=== PATIENT | male | born 1960 | race Caucasian/White ===

== ENCOUNTER 2020-05-27 09:02 | Outpatient (CLI) | payer BC, SELFPAY ==
--- NOTE | 2020-06-10 15:55 | WPDHOMESLEEP ---
Sleep Study - Home Unattended Date of Study: 05/27/20 Ordering Provider: Josette Lynch, [employer] Interpreting Provider: Darlyn Gage MD Home Sleep Study Type: Apnea Link Air Height: 1.73 m Weight: 58.06 kg Body Mass Index: 19.4 Neck Circumference (inches): 13.75 Reason for Sleep Study Excessive daytime sleepiness, snoring, insomnia Sleep History Dionisio Francois is a 60-year-old male who has complaints of loud snoring. He wakes in the middle of the night. His sleep is non restorative. He is excessively sleepy during the day. This has been going on for over 8 months, starting after being hospitalized for elevated blood glucose. He does not feel refreshed when waking in the morning. He was prescribed sleep medications but these did not help. He tried melatonin with some improvement for 2 days and then no further benefit. He has chronic fatigue and fragmented sleep. He does not have symptoms to suggest narcolepsy such as muscle weakness with strong emotion. The patient did not complete the sleep survey, so there is a lack of information about his sleep schedule. [facility] Past Medical History Medical History (Updated 06/10/20 @ 16:16 by Darlyn Gage MD) COPD (chronic obstructive pulmonary disease) Diabetes GERD (gastroesophageal reflux disease) Hyperlipidemia Hypertension Tobacco abuse Surgical History Surgical History (Updated 06/10/20 @ 16:01 by Darlyn Gage MD) S/P appendectomy Social History Social History (Updated 06/10/20 @ 16:08 by Darlyn Gage MD) Smoking packs per day: 0.5 Smoking cigarettes per day: 10.0 Smoking status: Current every day smoker Medications Medications: folic acid 1 mg a day glipizide 5 mg p.o. twice a day Humalog insulin as instructed Lantus insulin 20 units subcutaneously daily lisinopril 2.5 mg daily metformin 1000 mg b.i.d. pravastatin 10 mg daily Sleep Procedure This test was performed using 4 channel monitoring including respiratory effort channel, snoring channel, heart rate channel, and oxygen saturation channel. This study was scored using [facility] guidelines. Sleep Architecture Not applicable for home sleep test. Respiratory Analysis The recording time is 8 hours 50 minutes. Evaluation time is 8 hours 19 minutes. The apnea-hypopnea index is 2.8, within the normal range. The patient had 22 obstructive apneas and 1 hypopnea. There is no evidence of [place] respirations. Oximetry Data The oxygen desaturation index is 0.3, normal. Average saturation 97%. Lowest saturation 94%. There 3 desaturations of 4% or greater. No time spent below 88%. Snoring Profile Snoring was minimal 156 episodes Cardiac Profile The lowest pulse was 83, highest pulse was 120. Average pulse 91. Assessment and Plan Assessment and Plan (1) Hypersomnolence: Code(s): G47.10 - Hypersomnia, unspecified Status: Acute Assessment and Plan: This home sleep test using ApneaLink in May 27, 2020 shows no significant sleep disordered breathing The AHI is normal, 2.8, there is normal saturation and mild snoring. His heart rate was normal with a few spikes to 120 which suggests possible sleep disordered breathing. There was no sleep questionnaire completed. If his symptoms persist, he needs to have a split night sleep study in the sleep lab with a sleep aid to initiate and maintain sleep during the study. Home sleep tests underestimate the degree of sleep-disordered breathing as these tests do not measure actual sleep. This type of test assumes the patient is asleep the entire study, which is not possible. He complains of insomnia, and he probably did not sleep soundly during the entire test.
[2020-06-10 16:03] VITALS: BMI 19.4
== END 2020-05-27 09:03 | disposition home or self-care (01) ==
LOC: ANHCSM 09:02
PROVIDERS: Visit Provider Nurse Practitioner Gerontology
DX: G47.10 Hypersomnia, unspecified (principal); G47.33 Obstructive sleep apnea (adult) (pediatric)
CPT/HCPCS: 95806

== ENCOUNTER 2020-05-31 08:34 | Outpatient (CLI) | payer BC, SELFPAY ==
--- NOTE | 2020-05-31 18:31 | P.PCNPFT_ITS ---
PFT Interpretation This is a pulmonary function test with pre and post-bronchodilator spirometry, plethysmography and diffusing capacity. The test was performed and results interpreted in accordance with the 2019 and 2005 ATS/ERS Task Force guidelines respectively using the Global Lung Function Initiative-2012 reference equations. Patient demonstrated good effort and c ooperation. Reproducibility criteria were met. The quality of the pre bronchodilator spirometry maneuver was Grade A and post bronchodilator spirometry maneuver was Grade A. Findings: Spirometry: The contour of the inspiratory and expiratory flow tracing are normal. The pre bronchodilator FVC is 4.38 L, 101% predicted. The pre bronchodilator FEV1 is 3.08 L, 91% predicted. The FEV1: FVC ratio 70%. The post bronchodilator FVC is 4.61 L, representing a 5% increase. The post bronchodilator FEV1 is 3.37 L, representing a 9% increase. Plethysmography: The total lung capacity is 7.54 L, 114% predicted. The functional residual capacity is 5.23 L, 153% predicted. The residual volume is 3.16 L, 148% predicted. Diffusing capacity: The absolute diffusion capacity is 21.9, 79% predicted. The diffusing capacity corrected for alveolar volume is 3.55, 82% predicted. Impression: The spirometry is normal without evidence of an obstructive abnormality. There is no significant improvement after inhaling a single dose of albuterol. There is increase in the functional residual capacity and residual volume with a normal total lung capacity. This is an abnormal but nonspecific lung volume pattern. The diffusing capacity is normal. There are no prior studies for comparison
--- NOTE | 2020-05-31 18:42 | WPDSIXMINUTE ---
Six Minute Walk This is a 6 minutes walk test. The test was performed and interpreted in accordance with the 2014 ERS/ATS task force guidelines. Findings: The patient's resting room air oxygen saturation measured by pulse oximetry was 97% and her heart rate was 103 bpm. Patient ambulated for 335 meters and oxygen saturation remained 93 to 98%. Heart rate at the end of the study was 106 bpm. There are no prior studies for comparison.
== END 2020-05-31 08:35 | disposition home or self-care (01) ==
PROVIDERS: Visit Provider Nurse Practitioner Gerontology
DX: Z72.0 Tobacco use (principal)
CPT/HCPCS: 94060; 94618; 94726; 94729